=== PATIENT | female | born 1940 | race Caucasian/White ===

== ENCOUNTER 2021-07-26 04:37 | Inpatient (IN) | payer MEDICARE ==
[~2021-07-26] VITALS: Ht 167.6 cm; Wt 63.6 kg
[2021-07-26] VITALS (16 sets, daily range): BP systolic 94–126; BP diastolic 48–75
[2021-07-26 05:23] LABS: ALANINE AMINOTRANSFERASE 16 U/L (12-78); ALBUMIN 3.5 G/DL (3.4-5.0); ALBUMIN/GLOBULIN RATIO 1.2 (1.1-1.5); ALKALINE PHOSPHATASE 60 IU/L (46-116); ANION GAP 11 (8-16); ASPARTATE AMINO TRANSFERASE 14 U/L (10-37); BILIRUBIN,TOTAL 0.6 MG/DL (0.1-1.0); BLOOD UREA NITROGEN 16 MG/DL (7-18); BUN/CREATININE RATIO 14.3 (6.6-38.0); CALCIUM 8.1 MG/DL (8.5-10.1); CHLORIDE 111 MMOL/L (99-107); CREATININE 1.12 MG/DL (0.40-0.90); GLUCOSE 128 MG/DL (70-104); POTASSIUM 3.8 MMOL/L (3.5-5.1); SODIUM 143 MMOL/L (135-145); TOTAL CARBON DIOXIDE 21.3 MMOL/L (24-32); TOTAL PROTEIN 6.4 G/DL (6.4-8.2); eGFR 47 ML/MIN
[2021-07-26 05:26] LABS: CREATINE KINASE 65 U/L (26-192); MAGNESIUM 1.9 MG/DL (1.5-2.4)
[2021-07-26 05:29] LABS: BASOPHILS % (AUTO) 0.1 % (0-1); EOSINOPHILS % (AUTO) 0 % (0-6); HEMATOCRIT 36.3 % (35.0-45.0); HEMOGLOBIN 12.1 g/dl (12.0-16.0); LYMPHOCYTES # (AUTO) 0.9 X10'3 (1.1-4.8); LYMPHOCYTES % (AUTO) 8.5 % (21-51); MEAN CORPUSCULAR HEMOGLOBIN 31.8 PG (27.0-31.0); MEAN CORPUSCULAR HGB CONC 33.4 g/dL (33.0-36.5); MEAN CORPUSCULAR VOLUME 95.3 FL (78-98); MEAN PLATELET VOLUME 7.9 FL (7.4-10.4); MONOCYTES # (AUTO) 0.8 X10'3 (0-0.9); MONOCYTES % (AUTO) 6.9 % (2-12); NEUTROPHILS # (AUTO) 9.3 X10'3 (1.8-7.7); NEUTROPHILS % (AUTO) 84.5 % (42-75); PLATELET COUNT 184 X10'3 (140-440); RED BLOOD COUNT 3.81 X10'6 (4.20-5.60); RED CELL DISTRIBUTION WIDTH 13.2 % (11.5-14.5)
[2021-07-26] MEDS ORDERED: morphine 4 MG/ML inj SYRINge IV ONE ×2 (05:45→08:15)
[2021-07-26] MEDS ORDERED: ondansetron/PF 4mg/2ml inj IV ONE (05:45)
--- NOTE | 2021-07-26 05:50 | NUR ---
PT'S DAUGHTER GEN [facility]Z [place] [phone] CELL [phone]
[2021-07-26] MEDS ORDERED: HYDROcodone/acetaminophen 5mg/325mg tablet PO PRN (07:25)
[2021-07-26] MEDS ORDERED: POTASSIUM BICARB 20meq eff tab 20 MEQ TABLET.EFF PO PRN ×2 (07:25)
[2021-07-26] MEDS ORDERED: magnesium Cl slow-release 64mg tablet PO PRN (07:25)
[2021-07-26] MEDS ORDERED: magnesium 2GM in 50ml NS 50 ML IV PRN (07:25)
[2021-07-26] MEDS ORDERED: ondansetron/PF 4mg/2ml inj IV PRN ×2 (07:25→14:40)
[2021-07-26] MEDS ORDERED: acetaminophen 325mg tablet PO PRN (07:25)
[2021-07-26] MEDS ORDERED: magnesium 4gm in 100ml NS 100 ML IV PRN (07:25)
[2021-07-26] MEDS ORDERED: potassium CL 10mEq/100ml bag 100 ML IV PRN (07:25)
[2021-07-26] MEDS ORDERED: mag hydrox/Alum hydrox/simeth 30ml oral suspension PO PRN (07:25)
[2021-07-26] MEDS: normal saline 1000ml 1,000 ML IV SCH (07:56)
[2021-07-26] MEDS: K and/or MAG REPLACEMENT MC SCH ×2 (08:00→08:41)
[2021-07-26] MEDS: docusate sod 100mg capsule PO SCH ×2 (08:00→20:00)
--- NOTE | 2021-07-26 08:26 | NUR ---
ASSISTING RN WITH PT CARE, PT C/O LEFT HIP PAIN 11/09, MEDICATED PER ORDER, PT ALSO C/O RT HEEL BURNING, NO SKIN BREAK DOWN, PLACED PILLOW UNDER RT LOWER LEG
--- NOTE | 2021-07-26 09:55 | NUR ---
Checked on pt. Pain 8-9/10. Will give pain meds
[2021-07-26] MEDS: morphine 2 MG/ML inj. syringe IV PRN ×4 (10:00→23:37)
--- NOTE | 2021-07-26 10:43 | NUR ---
OR called. Anticipating surgery around 2-3pm. Will call back with an ETA.
--- NOTE | 2021-07-26 11:15 | NUR ---
Hospitalist paged again for pt's pain control.
--- NOTE | 2021-07-26 11:15 | NUR ---
Pt states she doesn't need any more pain medication at the time. Will hold further doses of medication until needed. States pain is 3/10
[2021-07-26] MEDS ORDERED: morphine 2 MG/ML inj. syringe IV PRN ×2 (11:20→14:40)
[2021-07-26] MEDS ORDERED: morphine 2 MG/ML inj. syringe IV ONE (11:20)
--- NOTE | 2021-07-26 11:46 | NUR ---
Pt refused wall suction for purewick- she stated the noise was bothering her. States she would rather pee all over the bed than move. Unwilling to allow me to place a mosquera. Would rather wait until OR. Addendum: 07/26/21 at 1234 by [email or web address] Pt educated on possiblity of skin breakdown. Still refusing perineal care.
--- NOTE | 2021-07-26 12:22 | NUR ---
Pt sleeping, no apparent distress or needs at this time.
--- NOTE | 2021-07-26 13:41 | NUR ---
Called OR- pt on schedule between 3-4pm. Pt in excruciating pain, will page hospitalist for more medication.
--- NOTE | 2021-07-26 13:45 | NUR ---
Hospitalist paged for pain meds for pt. Morphine not available for another hour
--- NOTE | 2021-07-26 14:30 | NUR ---
Myra from OR called at 1415 and stated pt would be going to surgery in 30min. Daughter updated on progress and wanted to speak with pt before surgery. Morphine (scheduled Q4h) available to be given and was given to pt. Cut pt's clothes off and placed a gown on her. Belongings placed into pt belongings bag. Before I could call pt's daughter back from pt's room, OR arrived (early) & was ready to take pt to surgery, so pt was transported upstairs. Pt's daughter called and was transferred to recovery to speak with mom before surgery.
[2021-07-26] MEDS ORDERED: ringers solution, lacted 1,000 ML IV SCH (14:40)
[2021-07-26] MEDS ORDERED: proCHLORperazine 10 MG/2 ml inj IV PRN (14:40)
[2021-07-26] MEDS ORDERED: morphine 4 MG/ML inj SYRINge IV PRN (14:40)
[2021-07-26] MEDS ORDERED: meperidine/PF 25mg/ml syringe IV PRN ×3 (14:40)
[2021-07-26] MEDS ORDERED: vancomycin 1,000mg inj ONE (14:52)
[2021-07-26] MEDS ORDERED: BUPIVAcaine/PF 2.5 mg/ml (0.25%) 30ml vial ONE (14:52)
[2021-07-26] MEDS ORDERED: sevoflurane 250ml liquid IH ONE (15:13)
[2021-07-26] MEDS ORDERED: fentaNYL/PF 50MCG/1 ML 2ML syringe ONE (15:19)
[2021-07-26] MEDS ORDERED: midazolam 1 mg/ML 2ml injection ONE (15:19)
[2021-07-26] MEDS ORDERED: ceFAZolin 1000mg inj ONE ×2 (15:48)
[2021-07-26] MEDS ORDERED: ePHEDrine 50MG/ML INJ. ONE (15:48)
[2021-07-26] MEDS ORDERED: propofol inj 20 ML IV ONE (15:48)
--- NOTE | 2021-07-26 16:16 | NUR ---
Received from OR via [facility]EE , accompanied by Anesthesiologist HEIDE and report given by Anesthesiolgist.PATIENT WITH 20G PIV IN LEFT HAND RUNNING LR AT 100. OP SITES AND DRESSINGS X2 TO LEFT HIP THAT IS CDI. + DP TO LEFT FOOT. VSS. Addendum: 07/26/21 at 1632 by Sameer Gonzalez RN, RN Amended: Links added.
--- NOTE | 2021-07-26 17:30 | NUR ---
Pt transferred from Recovery Room to 4017 via bed. Pt awake and alert. L hip dressing CDI. Pedal Pulses palpable BLE. Pt moves all toes to BLE. Pt reported severe L Hip pain. [place] given for pain. Call light within reach and instructed to use.
[2021-07-26] MEDS: HYDROcodone/acetaminophen 10/325mg tab PO PRN ×2 (17:40→22:03)
--- NOTE | 2021-07-26 19:16 | NUR ---
Patient in room ORTH[facility] 4017. I have received report from JERONIMO KEARNS and had the opportunity to ask questions and assume patient care.
[2021-07-27 02:00] VITALS: BP 112/68
[2021-07-27] MEDS: normal saline 1000ml 1,000 ML IV SCH ×2 (05:27→20:33)
[2021-07-27] MEDS: HYDROcodone/acetaminophen 10/325mg tab PO PRN ×3 (05:28→19:45)
--- NOTE | 2021-07-27 06:35 | NUR ---
Problems reprioritized. Patient report given, questions answered & plan of care reviewed with JERONIMO KEARNS.
[2021-07-27 06:59] VITALS: BP 105/66
[2021-07-27 07:12] LABS: BASOPHILS % (AUTO) 0.3 % (0-1); EOSINOPHILS % (AUTO) 0.3 % (0-6); HEMATOCRIT 29.8 % (35.0-45.0); HEMOGLOBIN 10.1 g/dl (12.0-16.0); LYMPHOCYTES # (AUTO) 1.3 X10'3 (1.1-4.8); LYMPHOCYTES % (AUTO) 15.5 % (21-51); MEAN CORPUSCULAR HEMOGLOBIN 32.7 PG (27.0-31.0); MEAN CORPUSCULAR HGB CONC 33.9 g/dL (33.0-36.5); MEAN CORPUSCULAR VOLUME 96.4 FL (78-98); MEAN PLATELET VOLUME 8.3 FL (7.4-10.4); MONOCYTES # (AUTO) 1.1 X10'3 (0-0.9); MONOCYTES % (AUTO) 12.5 % (2-12); NEUTROPHILS # (AUTO) 6.1 X10'3 (1.8-7.7); NEUTROPHILS % (AUTO) 71.4 % (42-75); PLATELET COUNT 157 X10'3 (140-440); RED BLOOD COUNT 3.09 X10'6 (4.20-5.60); RED CELL DISTRIBUTION WIDTH 13.3 % (11.5-14.5); WHITE BLOOD COUNT 8.6 X10'3 (4.5-11.0)
[2021-07-27 07:19] LABS: ALBUMIN 2.9 G/DL (3.4-5.0); ANION GAP 8 (8-16); BLOOD UREA NITROGEN 11 MG/DL (7-18); BUN/CREATININE RATIO 11.6 (6.6-38.0); CALCIUM 7.8 MG/DL (8.5-10.1); CHLORIDE 110 MMOL/L (99-107); CREATININE 0.95 MG/DL (0.40-0.90); GLUCOSE 120 MG/DL (70-104); SODIUM 141 MMOL/L (135-145); TOTAL CARBON DIOXIDE 22.9 MMOL/L (24-32); eGFR 57 ML/MIN
[2021-07-27] MEDS: K and/or MAG REPLACEMENT MC SCH ×2 (08:00→20:00)
[2021-07-27] MEDS: docusate sod 100mg capsule PO SCH ×2 (09:03→20:29)
[2021-07-27 10:00] VITALS: BP 90/54
[2021-07-27] MEDS ORDERED: ASPI-920 PO (10:11)
[2021-07-27] MEDS ORDERED: LEVO25TA2 PO (10:11)
[2021-07-27] MEDS ORDERED: MULTIVITAMINS PO (10:11)
[2021-07-27] MEDS ORDERED: SIMV-42 PO (10:11)
--- NOTE | 2021-07-27 12:40 | NUR ---
Pt shouting out needed help. Instructed pt to use call light for assistance. Allowed for expression of feelings. Pt reported generalized itching and rash. No rash seen but notified MD for orders for med for itching.
[2021-07-27 14:00] VITALS: BP 121/62
[2021-07-27 18:00] VITALS: BP 122/73
--- NOTE | 2021-07-27 18:41 | NUR ---
Patient in room ORTH[facility] 4017. I have received report from JERONIMO KEARNS and had the opportunity to ask questions and assume patient care.
[2021-07-27] MEDS ORDERED: enoxaparin 30mg/0.3ml syringe SUBCUT ONE (20:00)
[2021-07-27] MEDS: atorvastatin 20mg tablet PO SCH (20:29)
[2021-07-27] MEDS: aspirin 81mg tab.chew PO SCH (20:29)
[2021-07-27 22:00] VITALS: BP 124/72
[2021-07-28] MEDS: HYDROcodone/acetaminophen 10/325mg tab PO PRN ×3 (04:54→16:01)
[2021-07-28 06:00] VITALS: BP 127/76
[2021-07-28] MEDS: normal saline 1000ml 1,000 ML IV SCH ×2 (06:27→16:02)
[2021-07-28 06:39] LABS: ALBUMIN 2.5 G/DL (3.4-5.0); ANION GAP 9 (8-16); BLOOD UREA NITROGEN 8 MG/DL (7-18); BUN/CREATININE RATIO 9.2 (6.6-38.0); CALCIUM 7.5 MG/DL (8.5-10.1); CHLORIDE 111 MMOL/L (99-107); CREATININE 0.87 MG/DL (0.40-0.90); GLUCOSE 101 MG/DL (70-104); POTASSIUM 3.5 MMOL/L (3.5-5.1); SODIUM 139 MMOL/L (135-145); TOTAL CARBON DIOXIDE 19.3 MMOL/L (24-32); eGFR 63 ML/MIN
[2021-07-28 06:49] LABS: BASOPHILS % (AUTO) 0.2 % (0-1); EOSINOPHILS # (AUTO) 0.1 X10'3 (0-0.9); EOSINOPHILS % (AUTO) 0.6 % (0-6); HEMATOCRIT 28.6 % (35.0-45.0); HEMOGLOBIN 9.6 g/dl (12.0-16.0); LYMPHOCYTES # (AUTO) 1.3 X10'3 (1.1-4.8); MEAN CORPUSCULAR HGB CONC 33.4 g/dL (33.0-36.5); MEAN CORPUSCULAR VOLUME 95.8 FL (78-98); MEAN PLATELET VOLUME 8.6 FL (7.4-10.4); MONOCYTES # (AUTO) 1.2 X10'3 (0-0.9); MONOCYTES % (AUTO) 10.9 % (2-12); NEUTROPHILS # (AUTO) 8.1 X10'3 (1.8-7.7); NEUTROPHILS % (AUTO) 76.3 % (42-75); PLATELET COUNT 151 X10'3 (140-440); RED BLOOD COUNT 2.99 X10'6 (4.20-5.60); RED CELL DISTRIBUTION WIDTH 13.5 % (11.5-14.5); WHITE BLOOD COUNT 10.6 X10'3 (4.5-11.0)
--- NOTE | 2021-07-28 06:49 | NUR ---
Problems reprioritized. Patient report given, questions answered & plan of care reviewed with JOCELYN KEARNS.
--- NOTE | 2021-07-28 07:10 | NUR ---
Patient in room ORTH[facility] 4017. I have received report from Dasha KEARNS and had the opportunity to ask questions and assume patient care.
[2021-07-28] MEDS ORDERED: levoTHYROXINE 25mcg tablet PO SCH (08:00)
[2021-07-28] MEDS: K and/or MAG REPLACEMENT MC SCH ×2 (08:00→20:00)
[2021-07-28] MEDS: docusate sod 100mg capsule PO SCH ×2 (08:00→20:12)
[2021-07-28] MEDS: levoTHYROXINE 25mcg tablet PO SCH (09:06)
[2021-07-28 10:00] VITALS: BP 121/73
--- NOTE | 2021-07-28 16:36 | NUR ---
construction ironworker helper received call from Tele that patients HR was in the 170's. Per construction ironworker helper patient asymtomatic. I went in to assess patient and patient stated " I was choking on some lettuce." Patient is fine at this time breathing is good and BP is 141/80 HR 102. Salad was removed from patients room. Cosmetics Demonstrator Erlinda aware.
[2021-07-28 18:00] VITALS: BP 129/71
--- NOTE | 2021-07-28 18:38 | NUR ---
Problems reprioritized. Patient report given, questions answered & plan of care reviewed with Dasha KEARNS.
--- NOTE | 2021-07-28 18:58 | NUR ---
Patient in room [facility]TH[facility] 4017. I have received report from JOCELYN KEARNS and had the opportunity to ask questions and assume patient care.
[2021-07-28] MEDS: aspirin 81mg tab.chew PO SCH (20:12)
[2021-07-28] MEDS: atorvastatin 20mg tablet PO SCH (20:12)
[2021-07-29] MEDS: HYDROcodone/acetaminophen 10/325mg tab PO PRN ×4 (02:59→20:12)
--- NOTE | 2021-07-29 06:12 | NUR ---
Problems reprioritized. Patient report given, questions answered & plan of care reviewed with ALBANIA KEARNS.
--- NOTE | 2021-07-29 06:34 | NUR ---
Patient in room [facility]TH[facility] 4017. I have received report from lalo steel and had the opportunity to ask questions and assume patient care.
[2021-07-29 06:41] VITALS: BP 126/48
[2021-07-29 06:52] LABS: BASOPHILS % (AUTO) 0.3 % (0-1); EOSINOPHILS # (AUTO) 0.1 X10'3 (0-0.9); EOSINOPHILS % (AUTO) 1.6 % (0-6); HEMATOCRIT 27.6 % (35.0-45.0); HEMOGLOBIN 9.4 g/dl (12.0-16.0); LYMPHOCYTES # (AUTO) 1.3 X10'3 (1.1-4.8); LYMPHOCYTES % (AUTO) 16.2 % (21-51); MEAN CORPUSCULAR HEMOGLOBIN 32.5 PG (27.0-31.0); MEAN CORPUSCULAR VOLUME 95.6 FL (78-98); MEAN PLATELET VOLUME 8.3 FL (7.4-10.4); MONOCYTES # (AUTO) 0.8 X10'3 (0-0.9); MONOCYTES % (AUTO) 9.6 % (2-12); NEUTROPHILS % (AUTO) 72.3 % (42-75); PLATELET COUNT 178 X10'3 (140-440); RED BLOOD COUNT 2.89 X10'6 (4.20-5.60); RED CELL DISTRIBUTION WIDTH 13.1 % (11.5-14.5); WHITE BLOOD COUNT 8.3 X10'3 (4.5-11.0)
[2021-07-29] MEDS: normal saline 1000ml 1,000 ML IV SCH ×2 (06:55→21:13)
[2021-07-29 07:04] LABS: ALBUMIN 2.3 G/DL (3.4-5.0); ANION GAP 11 (8-16); BLOOD UREA NITROGEN 8 MG/DL (7-18); BUN/CREATININE RATIO 9.9 (6.6-38.0); CALCIUM 7.9 MG/DL (8.5-10.1); CHLORIDE 110 MMOL/L (99-107); CREATININE 0.81 MG/DL (0.40-0.90); GLUCOSE 97 MG/DL (70-104); POTASSIUM 3.3 MMOL/L (3.5-5.1); SODIUM 141 MMOL/L (135-145); TOTAL CARBON DIOXIDE 19.9 MMOL/L (24-32); eGFR 68 ML/MIN
[2021-07-29] MEDS: levoTHYROXINE 25mcg tablet PO SCH (07:39)
[2021-07-29] MEDS: docusate sod 100mg capsule PO SCH ×2 (07:40→20:00)
[2021-07-29] MEDS: K and/or MAG REPLACEMENT MC SCH ×2 (08:00→20:00)
[2021-07-29] MEDS: POTASSIUM BICARB 20meq eff tab 20 MEQ TABLET.EFF PO PRN ×3 (10:04→17:39)
[2021-07-29 10:58] VITALS: BP 106/73
[2021-07-29] MEDS: magnesium hydroxide 30ml (MOM) UD suspension PO PRN (11:56)
[2021-07-29 18:00] VITALS: BP 122/80
--- NOTE | 2021-07-29 18:33 | NUR ---
Problems reprioritized. Patient report given, questions answered & plan of care reviewed with sherman steel.
[2021-07-29] MEDS: atorvastatin 20mg tablet PO SCH (20:11)
[2021-07-29] MEDS: aspirin 81mg tab.chew PO SCH (20:12)
[2021-07-29 22:00] VITALS: BP 130/67
[2021-07-30] MEDS: HYDROcodone/acetaminophen 10/325mg tab PO PRN ×4 (01:40→19:05)
[2021-07-30 02:00] VITALS: BP 126/85
--- NOTE | 2021-07-30 06:13 | NUR ---
Patient in room ORTH[facility] 4017. I have received report from sherman steel and had the opportunity to ask questions and assume patient care.
[2021-07-30 06:15] LABS: ALBUMIN 2.3 G/DL (3.4-5.0); ANION GAP 10 (8-16); BASOPHILS # (AUTO) 0.1 X10'3 (0-0.2); BASOPHILS % (AUTO) 0.8 % (0-1); BLOOD UREA NITROGEN 8 MG/DL (7-18); BUN/CREATININE RATIO 9.2 (6.6-38.0); CHLORIDE 110 MMOL/L (99-107); CREATININE 0.87 MG/DL (0.40-0.90); EOSINOPHILS # (AUTO) 0.4 X10'3 (0-0.9); EOSINOPHILS % (AUTO) 4.8 % (0-6); GLUCOSE 98 MG/DL (70-104); HEMATOCRIT 29.1 % (35.0-45.0); LYMPHOCYTES % (AUTO) 26.3 % (21-51); MEAN CORPUSCULAR HEMOGLOBIN 32.9 PG (27.0-31.0); MEAN CORPUSCULAR HGB CONC 34.3 g/dL (33.0-36.5); MEAN CORPUSCULAR VOLUME 95.8 FL (78-98); MEAN PLATELET VOLUME 7.8 FL (7.4-10.4); MONOCYTES # (AUTO) 0.7 X10'3 (0-0.9); MONOCYTES % (AUTO) 8.7 % (2-12); NEUTROPHILS # (AUTO) 4.4 X10'3 (1.8-7.7); NEUTROPHILS % (AUTO) 59.4 % (42-75); PLATELET COUNT 218 X10'3 (140-440); POTASSIUM 4.1 MMOL/L (3.5-5.1); RED BLOOD COUNT 3.04 X10'6 (4.20-5.60); RED CELL DISTRIBUTION WIDTH 13.2 % (11.5-14.5); SODIUM 142 MMOL/L (135-145); TOTAL CARBON DIOXIDE 22.3 MMOL/L (24-32); WHITE BLOOD COUNT 7.5 X10'3 (4.5-11.0); eGFR 63 ML/MIN
[2021-07-30 06:45] VITALS: BP 138/69
[2021-07-30] MEDS: levoTHYROXINE 25mcg tablet PO SCH (07:17)
[2021-07-30] MEDS: docusate sod 100mg capsule PO SCH ×2 (07:17→20:21)
[2021-07-30] MEDS: K and/or MAG REPLACEMENT MC SCH ×2 (08:00→19:06)
--- NOTE | 2021-07-30 09:52 | NUR ---
Initial: Pt admit for left hip fracture, now POD # 4 s/p IM nail placement. Pt currently on a regular diet and overall eating poorly with mostly 25% PO intake though documented to be refusing some meals. Recommend Ensure Enlive TID to optimize PO intake, to be sent pending physician approval in EMR. LBM 07/25 though no GI symptoms per EMR. Pt receiving routine bowel care and received PRN MoM 07/29. D/w dietary to send prunes and prune juice with next meal to further assist with bowel regularity. Will continue to follow closely and monitor need for further nutrition intervention. Recommendations: 1) Continue regular diet 2) Ensure Enlive TID, pending physician approval in EMR 3) Encourage PO intake 4) Routine bowel care; utilize PRN bowel care given no BM x 5 days 5) Scaled weight this admit; subsequent weekly scaled weights Addendum: 07/30/21 at [address] Amended: Links added.
[2021-07-30 10:00] VITALS: BP 112/66
[2021-07-30] MEDS: normal saline 1000ml 1,000 ML IV SCH (11:33)
[2021-07-30] MEDS: lactose-reduced food (Ensure Enlive) - 237ml bottle PO SCH ×3 (13:00→18:00)
--- NOTE | 2021-07-30 17:25 | NUR ---
at 1325 placed stephanie hose on pt per md order to help w/circulation, at this time pt tells me to take stephanie hose off b/c they are making her legs hurt, took hose off, continue to monitor pt
[2021-07-30 18:00] VITALS: BP 154/84
--- NOTE | 2021-07-30 18:26 | NUR ---
Problems reprioritized. Patient report given, questions answered & plan of care reviewed with sherman.
[2021-07-30] MEDS: atorvastatin 20mg tablet PO SCH (20:21)
[2021-07-30] MEDS: aspirin 81mg tab.chew PO SCH (20:21)
[2021-07-30 22:00] VITALS: BP 129/64
[2021-07-31] MEDS: HYDROcodone/acetaminophen 10/325mg tab PO PRN ×2 (00:55→05:40)
[2021-07-31 06:00] VITALS: BP 145/78
[2021-07-31 06:29] LABS: BASOPHILS # (AUTO) 0.1 X10'3 (0-0.2); BASOPHILS % (AUTO) 0.8 % (0-1); EOSINOPHILS # (AUTO) 0.4 X10'3 (0-0.9); EOSINOPHILS % (AUTO) 5.4 % (0-6); HEMOGLOBIN 9.6 g/dl (12.0-16.0); LYMPHOCYTES # (AUTO) 1.8 X10'3 (1.1-4.8); MEAN CORPUSCULAR HEMOGLOBIN 31.7 PG (27.0-31.0); MEAN CORPUSCULAR HGB CONC 33.3 g/dL (33.0-36.5); MEAN CORPUSCULAR VOLUME 95.4 FL (78-98); MEAN PLATELET VOLUME 7.8 FL (7.4-10.4); MONOCYTES # (AUTO) 0.7 X10'3 (0-0.9); MONOCYTES % (AUTO) 10.2 % (2-12); NEUTROPHILS # (AUTO) 3.9 X10'3 (1.8-7.7); NEUTROPHILS % (AUTO) 56.6 % (42-75); PLATELET COUNT 239 X10'3 (140-440); RED BLOOD COUNT 3.04 X10'6 (4.20-5.60); RED CELL DISTRIBUTION WIDTH 13.5 % (11.5-14.5); WHITE BLOOD COUNT 6.8 X10'3 (4.5-11.0)
[2021-07-31 06:41] LABS: ALBUMIN 2.2 G/DL (3.4-5.0); ANION GAP 7 (8-16); BLOOD UREA NITROGEN 8 MG/DL (7-18); CALCIUM 8.2 MG/DL (8.5-10.1); CHLORIDE 111 MMOL/L (99-107); GLUCOSE 96 MG/DL (70-104); POTASSIUM 3.7 MMOL/L (3.5-5.1); SODIUM 140 MMOL/L (135-145); TOTAL CARBON DIOXIDE 22.1 MMOL/L (24-32); eGFR 69 ML/MIN
[2021-07-31] MEDS: normal saline 1000ml 1,000 ML IV SCH (07:33)
[2021-07-31] MEDS: K and/or MAG REPLACEMENT MC SCH (08:00)
[2021-07-31] MEDS: lactose-reduced food (Ensure Enlive) - 237ml bottle PO SCH ×2 (08:00→12:24)
[2021-07-31 10:00] VITALS: BP 123/84
[2021-07-31] MEDS: levoTHYROXINE 25mcg tablet PO SCH (10:35)
[2021-07-31] MEDS: docusate sod 100mg capsule PO SCH (10:35)
[2021-07-31] MEDS: magnesium hydroxide 30ml (MOM) UD suspension PO PRN (12:19)
[2021-07-31 13:30] VITALS: BP_SYST 119; BP_SYST 74; BP_SYST 97; BP_DIAS 40; BP_DIAS 56; BP_DIAS 69
--- NOTE | 2021-07-31 13:49 | NUR ---
PAGER ID: [phone] MESSAGE: [phone] Terrance orthostatic bp syncopal with PT unable to amb.still transfer or hold until tomorrow? [place] [id number]
== END 2021-07-31 17:00 | DRG 482 ==
LOC: ER 04:38 → ED HOLD 07:27 → ORTHO 4S 17:35
PROVIDERS: ADMIT Family Medicine; ATTEND Family Medicine
PROC: 0QS706Z Reposition Left Upper Femur with Intramedullary Internal Fixation Device, Open Approach (ICD-10-PCS; principal; 2021-07-26 15:13)
DX: S72.142A Displaced intertrochanteric fracture of left femur, initial encounter for closed fracture (principal); E03.9 Hypothyroidism, unspecified; Z20.822 Contact with and (suspected) exposure to COVID-19; E78.5 Hyperlipidemia, unspecified; W01.0XXA Fall on same level from slipping, tripping and stumbling without subsequent striking against object, initial encounter; I95.1 Orthostatic hypotension; E87.6 Hypokalemia; K59.00 Constipation, unspecified; Z79.82 Long term (current) use of aspirin; Z86.73 Personal history of transient ischemic attack (TIA), and cerebral infarction without residual deficits; Z90.710 Acquired absence of both cervix and uterus; Z88.0 Allergy status to penicillin; Z88.2 Allergy status to sulfonamides; Y93.89 Activity, other specified; Y92.098 Other place in other non-institutional residence as the place of occurrence of the external cause; Y99.8 Other external cause status
CPT/HCPCS: 36415; 71045; 73502; 76000; 80048; 80053; 82550; 83735; 84132; 84443; 84484; 85025; 85610; 86885; 86900; 86901; 87635; 96374; 96375; 97110; 97161; 97530; 99285; A4215; A4618; A6258; A6449; A7000; C1713; G0378; J0690; J1650; J2175; J2250; J2270; J2405; J2704; J3010; J3370; J3490; J7030; J7060